=== PATIENT | male | born 1940 | race Caucasian/White ===

== ENCOUNTER 2017-12-09 08:01 | Day surgery (SDC) | payer MEDICARE ==
[2017-12-09] MEDS ORDERED: PROPOFOL 200 MG/20 ML VIAL As Ordered ×2 (08:09→08:39)
[2017-12-09] MEDS ORDERED: NS 1,000 ML IV (09:00)
[2017-12-09] MEDS ORDERED: LIDOCAINE 2% INJ 100 MG/5 ML SDV (FOR ANES.) As Ordered (09:01)
[2017-12-09] MEDS ORDERED: fentaNYL 100 MCG/2 ML INJECTION (J3010) As Ordered (09:02)
== END 2017-12-09 10:26 | disposition home or self-care (01) ==
LOC: M OPP 08:01
DX: R12 Heartburn (principal); K22.8 Other specified diseases of esophagus; K29.70 Gastritis, unspecified, without bleeding; R00.8 Other abnormalities of heart beat; I10 Essential (primary) hypertension; K21.9 Gastro-esophageal reflux disease without esophagitis; R06.83 Snoring; Z91.040 Latex allergy status; Z91.048 Other nonmedicinal substance allergy status; Z79.899 Other long term (current) drug therapy
CPT/HCPCS: 91035

== ENCOUNTER → 2020-02-27 | Outpatient (CLI) | payer MEDICARE, BC ==
[~2020-02-27] MED LIST: AMLO2.5T3 PO; CALC1TAB67 PO; D31000TA2 PO; FAMO20TA PO; FISH5CAP PO; FOLI400T PO; GLUC1CAP10 PO; KP F1200 PO; MAGNESIUM ZINC PO; NEXI40CA PO; PRED1SOL3 OU; SUPETAB25 PO; SUPETAB44 PO; VITA-243 PO; VITA100067 PO; [UNRECOGNIZED DRUG - CODE] PO; [UNRECOGNIZED DRUG - CODE] PO; [UNRECOGNIZED DRUG - OTHER] PO; [UNRECOGNIZED DRUG - OTHER] PO; [UNRECOGNIZED DRUG - OTHER] PO; [UNRECOGNIZED DRUG - OTHER] PO
== END ==
LOC: M LABSMTC 09:33
PROVIDERS: ATTEND Anesthesiology
DX: Z11.59 Encounter for screening for other viral diseases (principal)

== ENCOUNTER 2020-03-03 08:51 | Day surgery (SDC) | payer MEDICARE, BC ==
[~2020-03-03] VITALS: Ht 193 cm; Wt 89.4 kg
[~2020-03-03 08:51] MED LIST changes: +NS 1,000 ML IV SCH; +SIMETHICONE 40MG/0.6ML DROPS 30ML As Ordered ONE
[2020-03-03] MEDS ORDERED: LIDOCAINE 2% 100MG/5ML SDV (FOR ANES.) As Ordered ONE (11:48)
[2020-03-03] MEDS ORDERED: propofoL 500 MG/50 ML VIAL As Ordered ONE (11:48)
[2020-03-03 12:55] VITALS: BP 145/82
--- NOTE | 2020-03-15 11:30 | ROOR ---
Patient Name: Robles Chin Procedure Date: 03/03/2020 7:48 AM Date of : 1940 Age: 79 Room: [facility] Gender: Male Note Status: Finalized Procedure: Colonoscopy Indications: Positive fecal immunochemical test Providers: Isaiah Richard MD Referring MD: ANANDA QUIÑONES MD Requesting Provider: Medicines: Monitored Anesthesia Care Complications: No immediate complications. Procedure: Pre-Anesthesia Assessment: - Prior to the procedure, a History and Physical was performed, and patient medications and allergies were reviewed. The patient is competent. The risks and benefits of the procedure and the sedation options and risks were discussed with the patient. All questions were answered and informed consent was obtained. Patient identification and proposed procedure were verified by the physician, the nurse and the anesthesiologist in the procedure room. Mental Status Examination: alert and oriented. Airway Examination: normal oropharyngeal airway and neck mobility. Respiratory Examination: clear to auscultation. CV Examination: normal. Prophylactic Antibiotics: The patient does not require prophylactic antibiotics. Prior Anticoagulants: The patient has taken no previous anticoagulant or antiplatelet agents. ASA Grade Assessment: II - A patient with mild systemic disease. After reviewing the risks and benefits, the patient was deemed in satisfactory condition to undergo the procedure. The anesthesia plan was to use monitored anesthesia care (MAC). Immediately prior to administration of medications, the patient was re-assessed for adequacy to receive sedatives. The heart rate, respiratory rate, oxygen saturations, blood pressure, adequacy of pulmonary ventilation, and response to care were monitored throughout the procedure. The physical status of the patient was re-assessed after the procedure. The Colonoscope was introduced through the anus and advanced to the terminal ileum, with identification of the appendiceal orifice and IC valve. The colonoscopy was performed without difficulty. The patient tolerated the procedure well. The quality of the bowel preparation was good. Scope insertion time was 3 minutes. Scope withdrawal time was 9 minutes. The total duration of the procedure was 12 minutes. Findings: The perianal and digital rectal examinations were normal. Pertinent negatives include normal sphincter tone. The terminal ileum appeared normal. Three sessile polyps were found in the transverse colon and ascending colon. The polyps were 4 to 6 mm in size. These polyps were removed with a jumbo cold forceps. Resection and retrieval were complete. Verification of patient identification for the specimen was done by the physician and nurse using the patient's name, date and medical record number. Multiple small-mouthed diverticula were found in the sigmoid colon. There was no evidence of diverticular bleeding. Non-bleeding external and internal hemorrhoids were found during retroflexion. The hemorrhoids were medium-sized. Impression: - The examined portion of the ileum was normal. - Three 4 to 6 mm polyps in the transverse colon and in the ascending colon, removed with a jumbo cold forceps. Resected and retrieved. - Moderate diverticulosis in the sigmoid colon. There was no evidence of diverticular bleeding. - Non-bleeding external and internal hemorrhoids. Recommendation: - Patient has a contact number available for emergencies. The signs and symptoms of potential delayed complications were discussed with the patient. Return to normal activities tomorrow. Written discharge instructions were provided to the patient. - High fiber diet. - Continue present medications. - Use fiber, for example Citrucel, Fibercon, Konsyl or Metamucil. - Await pathology results. - Repeat colonoscopy in 5 years for surveillance based on pathology results and depending on clinical and functional status. - Telephone GI clinic for pathology results in 2 weeks. - Return to primary care physician. Isaiah Richard MD 03/03/2020 12:19:41 PM Number of Addenda: 0 Note Initiated On: 03/03/2020 7:48 AM Estimated Blood Loss: Estimated blood loss was minimal.
== END 2020-03-03 12:55 | disposition home or self-care (01) ==
LOC: M OPP 08:51
PROVIDERS: ATTEND Internal Medicine Gastroenterology
DX: K64.8 Other hemorrhoids (principal); D12.6 Benign neoplasm of colon, unspecified; K57.30 Diverticulosis of large intestine without perforation or abscess without bleeding; R19.5 Other fecal abnormalities; K21.9 Gastro-esophageal reflux disease without esophagitis; Z79.82 Long term (current) use of aspirin; Z79.899 Other long term (current) drug therapy; Z91.040 Latex allergy status; Z91.048 Other nonmedicinal substance allergy status

== ENCOUNTER → 2020-08-16 | Outpatient (REF) | payer MEDICARE, BC ==
[~2020-08-16] MED LIST changes: -NS 1,000 ML IV SCH; -SIMETHICONE 40MG/0.6ML DROPS 30ML As Ordered ONE
== END ==
LOC: M LAB REF 17:08
PROVIDERS: ATTEND Dermatology
DX: C44.629 Squamous cell carcinoma of skin of left upper limb, including shoulder (principal); L57.0 Actinic keratosis

== ENCOUNTER → 2022-02-11 | Outpatient (REF) | payer MEDICARE, BC ==
[~2022-02-11] MED LIST changes: -D31000TA2 PO; -FOLI400T PO; +FOLI400T13 PO; +VITA100093 PO
== END ==
LOC: M SFHCDERM 16:52
PROVIDERS: ATTEND Physician Assistant
DX: L57.0 Actinic keratosis (principal); I87.2 Venous insufficiency (chronic) (peripheral)

== ENCOUNTER → 2025-04-05 | Outpatient (REF) | payer MEDICARE, OTHER | LOC: M SFHCDERM 17:41 | PROVIDERS: ATTEND Dermatology | DX: D48.9 Neoplasm of uncertain behavior, unspecified (principal) ==